=== PATIENT | female | born 1950 | race African-American/Black ===

== ENCOUNTER 2019-04-14 10:31 | Emergency (ER) | payer MEDICARE, OTHER ==
[2019-04-14 13:30] LABS: Actual Bicarbonate (HCO3a) 19.5 mEq/L (22-28); Analyzer IN Cardio ER; Base Excess (BEa) -3.9 mEq/L (-2.0 to +3.0); Carboxyhemoglobin (COHb) 0.1 gm% (0.0-3.0); Hemoglobin (Hb) 10.4 g/dL (12.0-16.0); O2 Tension (PaO2) 86.8 mmHg (> 70.0); Potassium - ABG Lab 2.67 mmol/L (3.70-5.30); pH, Arterial 7.43 (7.35-7.45)
[2019-04-14 13:33] LABS: Puncture Site RRA
[2019-04-14] MEDS ORDERED: Sodium Bicarb 50 MEQ/50 ML VIAL ONE (15:16)
[2019-04-14] MEDS ORDERED: EPINEPHrine 1 MG/10 ML Abboject SYRINGE ONE (15:16)
[2019-04-14] MEDS ORDERED: Calcium Chloride 1 GM/10 ML Abboject SYRINGE ONE (15:16)
== END 2019-04-14 11:06 | disposition expired ==
LOC: ERS 10:31
DX: I46.9 Cardiac arrest, cause unspecified (principal); I25.10 Atherosclerotic heart disease of native coronary artery without angina pectoris; Z86.73 Personal history of transient ischemic attack (TIA), and cerebral infarction without residual deficits; I10 Essential (primary) hypertension
CPT/HCPCS: 31500; 36416; 36680; 82805; 92950; 94002; 96374; 96375; J0171